=== PATIENT | male | born 1945 | race Caucasian/White ===

== ENCOUNTER 2023-01-06 16:07 | Emergency (ER) | payer OTHER, SELFPAY ==
[2023-01-06 16:16] VITALS: BP 153/67; PULSE 60; RESP 17; TEMP 36.6; O2SAT 97; BMI 28.7
--- NOTE | 2023-01-06 16:20 | ED_ITS ---
HPI - Eye Problem <KATIA Sood - Last Filed: 01/06/23 17:02> General Chief complaint: Eye Problems Stated complaint: Eye problems Time Seen by Provider: 01/06/23 16:18 History of Present Illness HPI Narrative: This is a 77-year-old gentleman with history of bilateral corneal lenses replaced who presents to the emergency department with left eye irritation for the last 2 days without known trauma or foreign body injury. Denies fever chills, denies vision changes that he had mildly blurred vision. States that it started in his left eye and then went to the right eye, states it feels gritty, states that he had his eye surgery completed last year in [place] but does not remember the provider's name or the place that he had this done. He denies eye pain, states he is had some conjunctival discharge in both of his eyes, denies any known foreign body contamination. States that he has been remodeling an apartment and exposure to dust, mold and other things has happened. Related Data Home Medications Medication Instructions Recorded Confirmed aspirin 81 mg tablet,delayed 81 mg PO DAILY 01/24/18 01/24/18 release (Adult Aspirin Regimen) multivitamin 1 cap PO DAILY 01/24/18 01/24/18 Previous Rx's Medication Instructions Recorded ciprofloxacin HCl 0.3 % eye 0.5 inch EYE-BOTH QID 01/06/23 ointment conjunctivitis 5 days #3.5 grams Allergies Allergy/AdvReac Type Severity Reaction Status Date / Time No Known Drug Allergies Allergy Unverified 01/24/18 09:42 Review of Systems <KATIA Sood - Last Filed: 01/06/23 17:02> Review of Systems ROS Unobtainable: All systems reviewed & are unremarkable except as noted in HPI and below Patient History <KATIA Sood - Last Filed: 01/06/23 17:02> Social History Smoking Status: Never smoker Smoking Status: Never smoker Exam <KATIA Sood Last Filed: 01/06/23 17:02> Narrative Exam Narrative: Reviewed vitals signs and nursing notes. General: Pleasant, sitting upright, in no acute distress, well groomed, afebrile HEENT: symmetrical facial expressions, moist mucous membranes, neck is supple Eyes: PERRLA bilaterally, conjunctival mucus and discharge present, mild conjunctival injection bilaterally, fluorescein exam shows punctate lesion on bilateral lenses with fluorescein uptake, no foreign body, lens without evidence of infection underneath that. EOMI, Skin: brisk capillary refill, without rash or wound, no blepharitis, hordeolum, foreign body, chalazion or other mid abnormality Neuro: clear speech and normal cognition, A&O x3, GCS 15, no focal motor or sensation deficits Initial Vital Signs Initial Vital Signs: Vital Signs Temperature 97.8 F 01/06/23 16:16 Pulse Rate 60 01/06/23 16:16 Respiratory Rate 17 01/06/23 16:16 Blood Pressure 153/67 H 01/06/23 16:16 Pulse Oximetry 97 01/06/23 16:16 Oxygen Delivery Method Room Air 01/06/23 16:16 <Christian Mcknight DO - Last Filed: 01/07/23 12:27> Initial Vital Signs Initial Vital Signs: Vital Signs Temperature 97.8 F 01/06/23 16:16 Pulse Rate 60 01/06/23 16:16 Respiratory Rate 17 01/06/23 16:16 Blood Pressure 153/67 H 01/06/23 16:16 Pulse Oximetry 97 01/06/23 16:16 Oxygen Delivery Method Room Air 01/06/23 16:16 Course <KATIA Sood - Last Filed: 01/06/23 17:02> Orders Ordered: Discontinued Medications Erythromycin (Erythromycin Ophth 1 Gm Oint) 1 applic EYE-LEFT NOW ONE Stop: 01/06/23 16:20 Last Admin: 01/06/23 16:26 Dose: 1 applic Documented By: RB Fluorescein Sodium (Fluorescein 1 Mg Strip) 1 mg EYE-LEFT NOW ONE Stop: 01/06/23 16:20 Last Admin: 01/06/23 16:26 Dose: 1 mg Documented By: RB Proparacaine HCl (Proparacaine 0.5% Ophth Adreinne) 1 drops EYE-LEFT NOW ONE Stop: 01/06/23 16:20 Last Admin: 01/06/23 16:25 Dose: 1 drop Documented By: RB Vital Signs Vital signs: Vital Signs - 8 hr 01/06/23 16:16 Temperature 97.8 F Pulse Rate 60 Respiratory Rate 17 Blood Pressure 153/67 H Pulse Oximetry 97 Oxygen Delivery Method Room Air <Christian Mcknight DO - Last Filed: 01/07/23 12:27> Orders Ordered: Discontinued Medications Erythromycin (Erythromycin Ophth 1 Gm Oint) 1 applic EYE-LEFT NOW ONE Stop: 01/06/23 16:20 Last Admin: 01/06/23 16:26 Dose: 1 applic Documented By: RB Fluorescein Sodium (Fluorescein 1 Mg Strip) 1 mg EYE-LEFT NOW ONE Stop: 01/06/23 16:20 Last Admin: 01/06/23 16:26 Dose: 1 mg Documented By: RB Proparacaine HCl (Proparacaine 0.5% Ophth Adrienne) 1 drops EYE-LEFT NOW ONE Stop: 01/06/23 16:20 Last Admin: 01/06/23 16:25 Dose: 1 drop Documented By: RB Vital Signs Vital signs: Vital Signs - 8 hr 01/06/23 16:16 Temperature 97.8 F Pulse Rate 60 Respiratory Rate 17 Blood Pressure 153/67 H Pulse Oximetry 97 Oxygen Delivery Method Room Air MDM - Eye Problem <KATIA Sood - Last Filed: 01/06/23 17:02> [facility] Narrative Medical decision making narrative: Chief Complaint: Eye irritation Independent historian: Patient Multiple etiologies for patient's symptoms considered including, but not limited to: Conjunctivitis, blepharitis, foreign body, chalazion, hordeolum, allergic conjunctivitis, toxic conjunctivitis, noninfectious/noninflammatory conjunctivitis, mold infection/exposure, Pseudomonas infection due to corneal lenses, periorbital cellulitis I have independently reviewed the patient's vital signs and nursing notes as well as prior records if available. 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 He will follow-up with ophthalmology here if he remains in town in the next 2 days on Sunday and will return to the emergency department if he develops any systemic symptoms of illness which he does not have any of at this time. Social considerations that may affect disposition: none Questions are addressed and there is agreement with the plan and for follow-up. I consulted with the ED attending physician Dr. Mcknight as needed for higher level of care considerations and they were available for discussion and recommendations regarding plan of care and diagnostic testing. Patient is appropriate for outpatient management. Discharge Plan Departure Patient Disposition: Home Clinical Impression: Bacterial conjunctivitis Abrasion of conjunctiva with infection Qualifiers: Encounter type: initial encounter Laterality: unspecified laterality Qualified Code(s): S05.00XA - Injury of conjunctiva and corneal abrasion without foreign body, unspecified eye, initial encounter Instructions: Conjunctivitis Activity Restrictions/Additional Instructions: *You have been diagnosed with concerning for bacterial. Since you have permanent lenses, we need to give you an antibiotic that will cover for bacterial infection dated to this, please use these drops 4 times daily for at least 5 days, up to 7 days to both eyes. Please schedule follow-up with Dr. Barkley or Dr. Pulido Sunday morning in [place]. Otherwise please get a hold of an eye doctor near you and get in for an evaluation. Use this ointment 4 times a day as a lubricant and to prevent infection of deeper tissue of your eye. If you develop a fever, chills, please come in for another evaluation and oral antibiotics. Please use Tylenol, Zyrtec or other antihistamine as needed for any allergic component. Follow-up with an eye doctor and return if you have any worsening of these things. *What to do: *Please continue to take your regular medications as directed. [x ] New medication prescriptions sent to your pharmacy: [[facility] ] [ ] New medication written as a paper prescription [ ] No new medications given *Please call and schedule follow up with your primary care provider in 2-3 days, at least for an update. Let them know you were seen in the Emergency Department for the above problem. We will electronically transmit a record of today's note if your PCP or specialist is in our system. *If you do not have a primary care provider please contact [phone] to establish care with one of the [facility] primary care providers. *Return to the Emergency Department for worsening symptoms, inability to keep liquids down, fever greater than 101F, chills, or other concerning symptom. Prescriptions: New ciprofloxacin HCl 0.3 % ointment 0.5 inch EYE-BOTH QID 5 Days Qty: 3.5 0RF No Action aspirin [Adult Aspirin Regimen] 81 mg tablet,delayed release (DR/EC) 81 mg PO DAILY multivitamin capsule 1 cap PO DAILY Referrals: Linnette Pulido MD [Physician] - Remy Cottrell PA-C [Primary Care Provider] - Fabio Barkley MD [Physician] - Stand Alone Forms: Patient Portal/API <Christian Mcknight DO - Last Filed: 01/07/23 12:27> Cosign ED Attending Cosbarbyature Attestation: I was immediately available in the department for consultation. Documentation has been reviewed. I agree with assessment and plan.
[2023-01-06] MEDS: PROPARACAINE 0.5% OPHTH SOL 1 DROPS EYE-LEFT (16:25)
[2023-01-06] MEDS: FLUORESCEIN 1 MG STRIP EYE-LEFT (16:26)
[2023-01-06] MEDS: ERYTHROMYCIN OPHTH 1 GM OINT 1 APPLIC EYE-LEFT (16:26)
== END 2023-01-06 17:00 | disposition home or self-care (01) ==
PROVIDERS: Emergency Provider Nurse Practitioner Critical Care Medicine; PCP Physician Assistant
DX: S05.00XA Injury of conjunctiva and corneal abrasion without foreign body, unspecified eye, initial encounter (principal); H10.9 Unspecified conjunctivitis
CPT/HCPCS: 99282